=== PATIENT | male | born 1965 | race Two or more races ===

== ENCOUNTER 2018-06-27 07:59 | Inpatient (IN) | payer OTHER ==
[~2018-06-27] VITALS: Ht 177.8 cm; Wt 208.5 kg
[2018-06-27] VITALS (7 sets, daily range): BP systolic 115–151; BP diastolic 58–75
[2018-06-27 09:24] LABS: BASO % 0 % (0-3); EOS # 0.3 x10^3/uL (0.0-0.7); EOS % 4 % (0-3); HEMATOCRIT 31.1 % (39.0-53.0); LYMPH # 2.1 x10^3/uL (1.0-4.8); LYMPH % 21 % (24-48); MEAN CORPUSCULAR HEMOGLOBIN 28 pg (25-35); MEAN CORPUSCULAR HGB CONC 32 g/dL (31-37); MEAN CORPUSCULAR VOLUME 86 fL (79-100); MONO # 0.7 x10^3/uL (0.0-1.1); MONO % 8 % (0-9); NEUT # 6.5 x10^3uL (1.8-7.7); NEUT % 67 % (31-73); PLATELET COUNT 193 x10^3/uL (140-400); RED BLOOD COUNT 3.64 x10^6/uL (4.30-5.70); RED CELL DISTRIBUTION WIDTH 16.5 % (11.5-14.5); WHITE BLOOD COUNT 9.7 x10^3/uL (4.0-11.0)
--- NOTE | 2018-06-27 09:38 | PDOC2 ---
ROSE CABRERA SOFTWARE SECURITY ARCHITECT 06/27/18 0938: CONSULT Date of Admission DATE: 06/27/18 TIME: 09:16 Reason for Consult: Acute on chronic diastolic heart failure Referring Physician: Dr Ardon History of Present Illness This is a pleasant 52-year-old male who came in as a direct admit with chief complaint of lower extremity edema and shortness of breath. He has a past medical history of congestive heart failure with preserved ejection fraction, hypertension, hyperlipidemia, chronic kidney disease, gastroesophageal reflux disease, and morbid obesity. over the last several months he has been having problems with lower extremity edema that is unrelieved by increasing his oral Lasix. He is very concerned about his kidney disease because his creatinine is very labile with diuresing him. We brought him to the hospital today so we could give him IV Lasix and monitor his kidney function closely. He has also been having problems with dyspnea on exertion. He is quite sedentary but when he is trying to move around he has been more short of breath. Review of systems - review of 10 organ systems is negative except for as in HPI. Allergies: PENICILLINS Medications Allopurinol 100 mg twice a day, aspirin 81 mg daily, atorvastatin 10 mg daily, Carafate 1 tablet 4 times a day, cyclobenzaprine 10 mg twice a day, for O some I had 120 mg twice a day, gabapentin 300 mg 4 times a day, isosorbide 60 mg daily Klor-Con 60 mEq twice a day, lisinopril 10 mg daily, loratadine 10 mg daily, metolazone 2.5 mg twice a day, metoprolol tartrate 50 mg twice a day, Singulair 10 mg daily, naproxen 500 mg p.r.n., omeprazole 40 mg daily, sertraline 150 mg daily, trazodone 200 mg daily Family History His mother had heart disease, diabetes, hypertension and cancer. His father had diabetes and heart disease. He has a sibling with heart disease. Social History Occupation: inmate Marital status: Diet: Regular Smoking Status: Never smoker Alcohol intake: None Caffeine intake: Moderate Past Medical/Surgical History Congestive Heart Failure (CHF): Y Acid Reflux (GERD): Y Peptic Ulcer Disease: Y Sleep Apnea: Y Physical Exam Patient is a 52-year-old male. Constitutional: General Appearance: morbidly obese. Level of Distress: NAD. Ambulation: Laying in stretcher.. Psychiatric: Mental Status: normal mood and affect and active and alert. Orientation: to time, place, and person. Head: Head: normocephalic and atraumatic. Eyes: Lids and Conjunctivae: non-injected; No xanthelasma. EOM: EOMI. Lungs: Auscultation: no wheezing, rales/crackles, or rhonchi and breath sounds normal, good air movement, and CTA except as noted. Cardiovascular: Apical Impulse: not displaced. Heart Auscultation: normal S1 and S2; no murmurs, rubs, or gallops; and RRR. Neck vessels: no carotid bruits; Jugular venous pressure not elevated. Abdomen: Bowel Sounds: normal. Inspection and Palpation: soft and no tenderness. Musculoskeletal:: Motor Strength and Tone: normal tone and motor strength. Extremities: no cyanosis and edema; 2+ bilateral pretibial edema. Neurologic: Gait and Station: Laying in stretcher.. Cranial Nerves: grossly intact. Skin: Inspection and palpation: no rash or lesions. Back: Thoracolumbar Appearance: normal curvature. Procedure Documentation ECHOCARDIOGRAM (06/03/2018): This is a technically difficult study due to body habitus. The left ventricle is normal in size. There is mild concentric left ventricular hypertrophy. The left ventricular systolic function appears normal with a visually estimated ejection fraction of 55-60%. The left ventricular diastolic function is normal. There is moderate bi-atrial dilatation. There is mild aortic valve sclerosis. The estimated pulmonary artery pressure is 25 mmHg, which is within normal parameters. No previous study for comparison. ELECTROCARDIOGRAM (06/03/2018): Sinus rhythm, normal tracing. ELECTROCARDIOGRAM (05/03/2018): Sinus rhythm with premature ventricular complex , otherwise unremarkable tracing. Assessment / Plan 1. Acuteon chronic diastolic heart failure - Plan to admit for IV Lasix strip in monitor lab closely. Will order chest x-ray. 2. Chest pain - Exact etiology unclear. Unfortunately, due to his extremely morbid obesity, he is not a candidate for any noninvasive or invasive cardiac testing. He should continue on aspirin, beta-lalit, long-acting nitrates, and statin medication. 3. Essential hypertension - The hypertension appears to be well controlled. I recommend the patient continue the present anti- 4. Pure hypercholesterolemia -Goal LDL < 100 mg/dL. Continue statin therapy 5. Gastroesophageal reflux disease without esophagitis - continue Carafate as well as PPI. 6. 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 Lifestyle modification with exercise, diet and weight loss was recommended to the patient. SEPIDEH WORTHINGTON Jr, MD 06/27/18 0959: CONSULT Reason for Consult: CHF. History of Present Illness He is a pleasant 52-year-old male with a history of chronic heart failure with preserved ejection fraction. He is currently a incarcerated at [facility] of the local prisons. He states that since he has been incarcerated he has gained a significant amount of weight which he believes is all water. I have seen him in the office and we have attempted to adjust his diuretic dose. However, he has not been losing weight. He continues to have significant bilateral lower extremity edema and ongoing dyspnea on exertion. Because of this, we elected to admit him to the hospital for intravenous diuresis. He has ongoing intermittent episodes of chest discomfort. This is in the center of his chest. This occurs with and without exertion. This may be brief for last up to hours. Nothing seems to bring this on. Nothing seems to make this better other than just waiting for this to pass. He has occasional paroxysmal nocturnal dyspnea and orthopnea. He denies any significant palpitations, or syncope. He has occasional lightheaded spells. Review of System review of 10 organ systems is as per the history of present illness, otherwise negative. General: Alert, Oriented X3, Cooperative, No acute distress, Other (He is morbidly obese.) HEENT: Atraumatic, EOMI, Mucous membr. moist/pink Lungs: Clear to auscultation, Normal air movement Heart: Regular rate, Normal S1, Normal S2, No murmurs Abdomen: Normal bowel sounds, Soft, No tenderness Extremities: No clubbing, No cyanosis, Normal pulses, No tenderness/swelling, Other ( 2+ bilateral pretibial edema.) Skin: No rashes, No breakdown, No significant lesion Neuro: Normal speech, Strength at 5/5 X4 ext, Normal tone, Cranial nerves 3-12 NL Psych/Mental Status: Mental status NL, Mood NL Assessment/Plan CHF, acute on chronic, with preserved ejection fraction. He is failing outpatient oral diuretics. We will place him on a Lasix infusion. We will need to watch his renal function closely given his stage 3 chronic kidney disease. He will need potassium replacement. I suspect he may need 2 or 3 nights in the hospital to reach his dry weight. Chest pain. Exact etiology unclear. I suspect this could be multifactorial due to gastroesophageal reflux disease and possibly some musculoskeletal component. Ischemic heart disease is certainly also in the differential diagnosis. However, due to his morbid obesity, he is too large to be able to undergo any noninvasive or for that matter invasive cardiac testing. Essential hypertension. Blood pressure appears well controlled with the present outpatient medications. These should be continued. Hypercholesterolemia. Continue statin medication. Morbid obesity. I suspect this is also contributing to his edema and shortness of breath. Unfortunately, due to his morbid obesity, he is too large to undergo any noninvasive or invasive ischemic evaluation. ROSE CABRERA APRN Jun 27, 2018 09:38 SEPIDEH WORTHINGTON Jr, MD Jun 27, 2018 09:59
[2018-06-27 09:48] LABS: ALBUMIN 3.3 g/dL (3.4-5.0); ALBUMIN/GLOBULIN RATIO 0.8 (1.0-1.7); CALCIUM 9.2 mg/dL (8.5-10.1); CREATININE 2.3 mg/dL (0.7-1.3); GFR 30.1; POTASSIUM 4.3 mmol/L (3.5-5.1); TOTAL BILIRUBIN 0.4 mg/dL (0.2-1.0); TOTAL PROTEIN 7.5 g/dL (6.4-8.2)
[2018-06-27] MEDS ORDERED: FUROSEMIDE 100 MG/10 ML VIAL ONE (10:30)
[2018-06-27] MEDS ORDERED: IV NORMAL SALINE 100 ML BAG ONE (10:30)
[2018-06-27 12:30] LABS: BACTERIA,URINE 0 /HPF (0-FEW); BILIRUBIN,URINE NEG (NEG); CLARITY,URINE CLEAR; COLOR,URINE YELLOW; GLUCOSE,URINE NEG (NEG); NITRITE,URINE NEG (NEG); RBC,URINE 0 /HPF (0-2); SQUAMOUS EPITHELIAL CELL,UR OCC /LPF; UROBILINOGEN,URINE 0.2 mg/dL (0.2 mg/dL); WBC,URINE 0 /HPF (0-4)
[2018-06-27 12:31] LABS: HYALINE CASTS, URINE FEW /HPF
--- NOTE | 2018-06-27 13:34 | RAD ---
EXAM: Chest, single view. HISTORY: Congestive heart failure. COMPARISON: None. FINDINGS: A frontal view of the chest is obtained. There is pulmonary congestion. There is bilateral hilar enlargement due to enlarged central pulmonary arteries or lymphadenopathy. There is an enlarged cardiac silhouette. No pleural effusion or pneumothorax is seen. IMPRESSION: 1. Mild pulmonary congestion. 2. Mild cardiomegaly. 3. Bilateral hilar enlargement likely due to enlarged central pulmonary arteries or lymphadenopathy. Electronically signed by: Kady Holt MD (06/27/2018 1:31 PM) [place] [id number]
[2018-06-27] MEDS ORDERED: SUCR1TAB35 PO (14:06)
[2018-06-27] MEDS ORDERED: ISOS60TA2 PO (14:06)
[2018-06-27] MEDS ORDERED: GABA800T2 PO (14:06)
[2018-06-27] MEDS ORDERED: METO2.5T PO (14:06)
[2018-06-27] MEDS ORDERED: TOLT2TAB4 PO (14:06)
[2018-06-27] MEDS ORDERED: TRAZ-86 PO (14:06)
[2018-06-27] MEDS ORDERED: SERT100T PO (14:06)
[2018-06-27] MEDS ORDERED: ALLO100T PO (14:06)
[2018-06-27] MEDS ORDERED: OMEP40CA5 PO (14:06)
[2018-06-27] MEDS ORDERED: POTA20TA4 PO (14:06)
[2018-06-27] MEDS ORDERED: ATOR10TA60 PO (14:06)
[2018-06-27] MEDS ORDERED: CYCL5TAB PO (14:06)
[2018-06-27] MEDS ORDERED: ASPI-630 PO (14:06)
[2018-06-27] MEDS ORDERED: METO50TA6 PO (14:06)
[2018-06-27] MEDS ORDERED: MONT10TA6 PO (14:06)
[2018-06-27] MEDS ORDERED: LORA10TA3 PO (14:06)
--- NOTE | 2018-06-27 14:09 | HP ---
ADMIT DATE: 06/27/2018 HISTORY OF PRESENT ILLNESS: The patient is a 52-year-old -[place] male patient, an inmate at [facility], who was admitted directly with the complaint of lower extremity edema and shortness of breath. When I asked him, he also complained of chest pain, feeling dizzy; however, he denied any orthopnea or paroxysmal nocturnal dyspnea. He said he is lying flat in bed. He also complained of swelling, more of the left leg than the right and pain in his both knee joints and was admitted to be started on a Lasix drip. PAST MEDICAL HISTORY: Significant for hypertension, hyperlipidemia, diastolic congestive heart failure, chronic kidney disease, morbid obesity, obstructive sleep apnea, osteoarthritis, bronchial asthma. He apparently was intubated once before while in [place]. PAST SURGICAL HISTORY: Unremarkable. He did have a colonoscopy before. FAMILY HISTORY: He said he has 4 brothers and 3 sisters, all older than him. He apparently has a very strong family history of diabetes, heart disease, hypertension. His mother at age of 52 because of cancer and father at the age of 62 because of myocardial infarction. SOCIAL HISTORY: He is , has 6 daughters and 5 sons, has never smoked. Drinks alcohol occasionally. 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 He used to snort heroin, has never used any needles. 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 He does not inject amphetamine, methamphetamine, cocaine or use marijuana. REVIEW OF SYSTEMS: The patient denied any blurring of vision, cataract, glaucoma or macular degeneration. Denied any earache, tinnitus or sensorineural deafness. Denied any nosebleeds, stuffy nose or postnasal drip. Denied any sore throat, sore tongue, toothache, hoarseness of voice or difficulty swallowing. Denied any nausea, vomiting, diarrhea or constipation. Denied any hematemesis, melena or hematochezia. Denied any dysuria, frequency or hematuria. Did complain of chest pain, shortness of breath. Denied any chills, rigors, or fever. Denied any cough, phlegm or hemoptysis. Did complain of dizziness and lightheadedness. PHYSICAL EXAMINATION: GENERAL: When I examined him, he looked well and was clearly in no apparent respiratory distress. There was no pallor, jaundice or cyanosis. No lymphadenopathy, no thyromegaly. No jugular venous distention, but marked bilateral lower limb edema, more so on the left than right. VITAL SIGNS: His heart rate was 72, blood pressure 121/68, temperature was 97.7, respiratory rate was 26 and oxygen saturation was 95% on room air. HEENT: Showed normocephalic, atraumatic. NECK: Supple. HEART: Showed normal first and second sounds. No gallop, rub or murmur. CHEST: Shows central trachea, equally reduced expansion, vesicular breath sounds, I could not really appreciate any crepitation or rhonchi. ABDOMEN: Markedly distended, soft with tenderness in the apron. No guarding or rigidity. No organomegaly. Hernial orifice intact. Bowel sounds normal. NEUROLOGIC: He is awake, alert, responding appropriately. All his cranial nerves are intact. He moves his upper extremities to much good extent than his lower extremities. LABORATORY DATA: Her lab work this morning showed a white cell count of 9700, hemoglobin 10, hematocrit 31, MCV 86, and platelet count of 193,000. His serum sodium was 141, potassium 4.3, chloride 104, bicarbonate 31, anion gap of 6, BUN 48, creatinine 2.3, estimated GFR was 30 mL per minute. His glucose was 103. Calcium was 9.2. Total bilirubin, AST, ALT, alkaline phosphatase were normal. Total protein was 7.5, albumin was 3.3. Urinalysis showed the urine was yellow, clear with a pH of 5.5, specific gravity of 1.010. The urine was negative for protein, glucose, ketones, blood, nitrite and leukocyte esterase. There are no rbc's, no wbc's, and no bacteria. His chest x-ray done, but was not reported yet. IMPRESSION AND PLAN: In summary, this is a 52-year-old inmate at the [facility], who has multiple medical problems. He is here for acute on chronic diastolic congestive heart failure with preserved ejection fraction, hypertension, hyperlipidemia, chronic kidney disease, gastroesophageal reflux disease and morbid obesity with obstructive sleep apnea. He has been on 120 mg Lasix twice a day. The plan is to continue with IV drip. We will do 3 sets of cardiac enzyme. Unfortunately, he is not a candidate for any invasive cardiac testing. Hypertension seems to be well controlled. Hypercholesterolemia, on statin. Gastroesophageal reflux disease, continue Carafate and protein pump inhibitor. We will monitor his lab work closely and decide on further management accordingly. I will order also a Doppler ultrasound of his right lower extremity, given the discrepancy to make sure he does not have any DVT given that he has multiple risk factors for that. KYLE MORRIS MD DR: VIJI/darwin JOB#: [id number] / [id number]
[2018-06-27] MEDS: SERTRALINE 100 MG TABLET. PO SCH (15:27)
[2018-06-27] MEDS: ASPIRIN 81 MG TAB.CHEW PO SCH (15:27)
[2018-06-27] MEDS: ALLOPURINOL 100 MG TABLET. PO SCH (15:27)
[2018-06-27] MEDS: ISOSORBIDE MONONITRATE ER 30 MG TAB.ER.24H PO SCH (15:27)
[2018-06-27] MEDS: metOLazone 2.5 MG TABLET PO SCH (15:40)
[2018-06-27] MEDS: POTASSIUM CHLORIDE 20 MEQ TABLET.ER. PO SCH (15:40)
[2018-06-27] MEDS: SUCRALFATE 1 GM TABLET. PO SCH ×2 (15:40→20:36)
--- NOTE | 2018-06-27 16:10 | RAD ---
Examination: Right Lower Extremity Venous Doppler Ultrasound History: Right leg swelling Comparison: None Procedure: Bautista scale, color flow 2D and spectal waveform analysis images are obtained with and without compression in the area of the common femoral vein, superficial femoral vein - femoral vein junction, main femoral vein (superficial femoral vein) and popliteal vein. Veins of the proximal calf are also imaged. Findings: There is normal duplex flow, color flow and compressibility of all visualized vein segments. No evidence of deep venous thrombus is present. Impression: No evidence of DVT in the visualized right lower extremity venous system. Electronically signed by: Augustine Glover MD (06/27/2018 4:07 PM) [id number]
[2018-06-27] MEDS: GABAPENTIN 400 MG CAPSULE. PO SCH (20:36)
[2018-06-27] MEDS: traZODone 100 MG TABLET. PO SCH (20:36)
[2018-06-27] MEDS: METOPROLOL TART IMMED RELEASE 50 MG TABLET PO SCH (20:37)
[2018-06-27] MEDS: OXYBUTYNIN CHLORIDE 5 MG TABLET PO SCH (20:37)
[2018-06-27] MEDS: CYCLOBENZAPRINE 10 MG TABLET. PO SCH (20:37)
[2018-06-27] MEDS: MONTELUKAST 10 MG TABLET. PO SCH (20:37)
[2018-06-27] MEDS ORDERED: ATORVASTATIN CALCIUM 10 MG TABLET. PO SCH (21:00)
[2018-06-28] VITALS (11 sets, daily range): BP systolic 97–158; BP diastolic 41–74
[2018-06-28 06:58] LABS: ALBUMIN 3.1 g/dL (3.4-5.0); ALBUMIN/GLOBULIN RATIO 0.8 (1.0-1.7); CREATININE 2.2 mg/dL (0.7-1.3); GFR 31.7; TOTAL BILIRUBIN 0.5 mg/dL (0.2-1.0)
[2018-06-28] MEDS: GABAPENTIN 400 MG CAPSULE. PO SCH ×2 (07:51→21:35)
[2018-06-28] MEDS: FUROSEMIDE INJ 100 MG in IV NORMAL SALINE 100ML 90 ML IV PRN (07:51)
[2018-06-28] MEDS: SUCRALFATE 1 GM TABLET. PO SCH ×4 (07:52→21:35)
[2018-06-28] MEDS: SERTRALINE 100 MG TABLET. PO SCH (07:56)
[2018-06-28] MEDS: ISOSORBIDE MONONITRATE ER 30 MG TAB.ER.24H PO SCH (07:56)
[2018-06-28] MEDS: metOLazone 2.5 MG TABLET PO SCH ×2 (07:56→17:08)
[2018-06-28] MEDS: CETIRIZINE HCL 10 MG TABLET PO SCH (07:56)
[2018-06-28] MEDS: METOPROLOL TART IMMED RELEASE 50 MG TABLET PO SCH ×2 (07:57→21:36)
[2018-06-28] MEDS: ASPIRIN 81 MG TAB.CHEW PO SCH (07:57)
[2018-06-28] MEDS: ALLOPURINOL 100 MG TABLET. PO SCH (07:57)
[2018-06-28] MEDS: PANTOPRAZOLE 40 MG TABLET. PO SCH (07:58)
[2018-06-28] MEDS: OXYBUTYNIN CHLORIDE 5 MG TABLET PO SCH ×2 (07:58→21:36)
[2018-06-28] MEDS: POTASSIUM CHLORIDE 20 MEQ TABLET.ER. PO SCH ×2 (07:58→17:09)
[2018-06-28] MEDS: CYCLOBENZAPRINE 10 MG TABLET. PO SCH ×2 (07:59→21:35)
--- NOTE | 2018-06-28 12:35 | PDOC ---
ROSE CABRERA CONCRETE POURER 06/28/18 1235: PROGRESS NOTES Assessment We are seeing the patient for congestive heart failure 1. Acute on chronic diastolic heart failure - Continue IV Lasix drip and monitor lab closely. Improving - down 6100 cc. Weight not accurate due to changing beds. 2. Leg cramps - likely from diuresis vs statin therapy. Will decrease drip rate and run Mag on lab drawn 3. Essential hypertension - The hypertension appears to be well controlled. I recommend the patient continue the present anti- 4. Pure hypercholesterolemia -Goal LDL < 100 mg/dL. Statin on hold 5. Gastroesophageal reflux disease without esophagitis - continue Carafate as well as PPI. 6. Morbid obesity -This will increase the patient's mcc risk of possible future cardiac and non-cardiac events. Lifestyle modification with exercise, diet and weight loss was recommended to the patient. Subjective Severe leg cramps and took a while to get relaxed. Swelling has improved. His breathing is fine without palpitations. Objective Vital Signs Date Time Temp Pulse Resp B/P (MAP) Pulse Ox O2 Delivery O2 Flow Rate FiO2 06/28/18 09:49 71 110/56 (74) 06/28/18 08:30 Room Air 06/28/18 04:30 16 93 06/27/18 18:33 97.7 Intake and Output 06/28/18 07:00 Intake Total 1260 ml Output Total 7425 ml Balance -6165 ml Intake Oral 1260 ml Output Urine Total 7425 ml Abdomen: Normal bowel sounds, Soft, No tenderness Heart: Regular rate, Normal S1, Normal S2 Extremities: Other (+1 edema) General: Alert, Oriented X3, Cooperative HEENT: EOMI, Mucous membr. moist/pink Lungs: Clear to auscultation Skin: No rashes, No breakdown Review of Relevant I have reviewed the following items eva (where applicable) has been applied. Labs Laboratory Tests Test 06/27/18 08:49 06/27/18 11:50 06/27/18 11:58 06/28/18 05:33 White Blood Count 9.7 x10^3/uL (4.0-11.0) Red Blood Count 3.64 x10^6/uL (4.30-5.70) Hemoglobin 10.0 g/dL (13.0-17.5) Hematocrit 31.1 % (39.0-53.0) Mean Corpuscular Volume 86 fL (79-100) Mean Corpuscular Hemoglobin 28 pg (25-35) Mean Corpuscular Hemoglobin Concent 32 g/dL (31-37) Red Cell Distribution Width 16.5 % (11.5-14.5) Platelet Count 193 x10^3/uL (140-400) Neutrophils (%) (Auto) 67 % (31-73) Lymphocytes (%) (Auto) 21 % (24-48) Monocytes (%) (Auto) 8 % (0-9) Eosinophils (%) (Auto) 4 % (0-3) Basophils (%) (Auto) 0 % (0-3) Neutrophils # (Auto) 6.5 x10^3uL (1.8-7.7) Lymphocytes # (Auto) 2.1 x10^3/uL (1.0-4.8) Monocytes # (Auto) 0.7 x10^3/uL (0.0-1.1) Eosinophils # (Auto) 0.3 x10^3/uL (0.0-0.7) Basophils # (Auto) 0.0 x10^3/uL (0.0-0.2) Nasal Screen MRSA (PCR) Negative (Negative) Sodium Level 141 mmol/L (136-145) 141 mmol/L (136-145) Potassium Level 4.3 mmol/L (3.5-5.1) 4.0 mmol/L (3.5-5.1) Chloride Level 104 mmol/L (98-107) 103 mmol/L (98-107) Carbon Dioxide Level 31 mmol/L (21-32) 33 mmol/L (21-32) Anion Gap 6 (6-14) 5 (6-14) Blood Urea Nitrogen 48 mg/dL (8-26) 51 mg/dL (8-26) Creatinine 2.3 mg/dL (0.7-1.3) 2.2 mg/dL (0.7-1.3) Estimated GFR (Cockcroft-Gault) 30.1 31.7 BUN/Creatinine Ratio 21 (6-20) 23 (6-20) Glucose Level 103 mg/dL (70-99) 90 mg/dL (70-99) Calcium Level 9.2 mg/dL (8.5-10.1) 9.0 mg/dL (8.5-10.1) Total Bilirubin 0.4 mg/dL (0.2-1.0) 0.5 mg/dL (0.2-1.0) Aspartate Amino Transf (AST/SGOT) 18 U/L (15-37) 15 U/L (15-37) Alanine Aminotransferase (ALT/SGPT) 22 U/L (16-63) 9 U/L (16-63) Alkaline Phosphatase 116 U/L (46-116) 96 U/L (46-116) FY-Swh-T-Type Natriuretic Peptide 111 pg/mL (0-124) Total Protein 7.5 g/dL (6.4-8.2) 7.0 g/dL (6.4-8.2) Albumin 3.3 g/dL (3.4-5.0) 3.1 g/dL (3.4-5.0) Albumin/Globulin Ratio 0.8 (1.0-1.7) 0.8 (1.0-1.7) Glucose (Fingerstick) 102 mg/dL (70-99) Urine Collection Type U cath Urine Color Yellow Urine Clarity Clear Urine pH 5.5 Urine Specific [place] 1.010 Urine Protein Neg (NEG-TRACE) Urine Glucose (UA) Neg mg/dL (NEG) Urine Ketones (Stick) Neg mg/dL (NEG) Urine Blood Neg (NEG) Urine Nitrite Neg (NEG) Urine Bilirubin Neg (NEG) Urine Urobilinogen Dipstick 0.2 mg/dL (0.2 mg/dL) Urine Leukocyte Esterase Neg (NEG) Urine RBC 0 /HPF (0-2) Urine WBC 0 /HPF (0-4) Urine Squamous Epithelial Cells Occ /LPF Urine Bacteria 0 /HPF (0-FEW) Urine Hyaline Casts Few /HPF Urine Mucus Slight /LPF Medications Current Medications Furosemide 100 mg/ Sodium Chloride 100 ml @ 5 mls/hr CONT PRN IV SEE I/O RECORD Last administered on 06/28/18at 07:51; Start 06/27/18 at 10:15 Potassium Chloride (Klor-Con) 60 meq BIDWMEALS PO Last administered on at 07:58; Start 06/27/18 at 17:00 Sertraline HCl (Zoloft) 150 mg DAILY PO Last administered on 06/28/18 07:56; Start 06/27/18 at 15:30 Allopurinol (Zyloprim) 100 mg DAILY PO Last administered on 06/28/18 07:57; Start 06/27/18 at 15:30 Aspirin (Children'S Aspirin) 81 mg DAILYWBKFT PO Last administered on 07:57; Start 06/27/18 at 15:30 Atorvastatin Calcium (Lipitor) 10 mg QHS PO Last administered on 06/27/18 20: 36; Start 06/27/18 at 21:00; Stop 06/28/18 at 10:49; Status DC Cyclobenzaprine HCl (Flexeril) 5 mg BID PO Last administered on 06/28/18 07:59 ; Start 06/27/18 at 21:00 Gabapentin (Neurontin) 1,200 mg BID PO Last administered on 06/28/18 07:51; Start 06/27/18 at 21:00 Isosorbide Mononitrate (Imdur) 60 mg DAILY PO Last administered on 06/28/18 07 :56; Start 06/27/18 at 15:30 Cetirizine HCl (ZyrTEC) 10 mg DAILY PO Last administered on 06/28/18 07:56; Start 06/28/18 at 09:00 Metolazone (Zaroxolyn) 2.5 mg BID94 PO Last administered on 06/28/18 07:56; Start 06/27/18 at 16:00 Metoprolol Tartrate (Lopressor) 50 mg BID PO Last administered on 06/28/18 07: 57; Start 06/27/18 at 21:00 Montelukast Sodium (Singulair) 10 mg QHS PO Last administered on 06/27/18 20: 37; Start 06/27/18 at 21:00 Pantoprazole Sodium (Protonix) 40 mg DAILYAC PO Last administered on 06/28/18 07:58; Start 06/28/18 at 07:30 Sucralfate (Carafate) 1 gm QID PO Last administered on 06/28/18 07:52; Start 06/27/18 at 17:00 Oxybutynin Chloride (Ditropan) 5 mg BID PO Last administered on 8/28/18at 07:58 ; Start 06/27/18 at 21:00 Trazodone HCl (Desyrel) 200 mg QHS PO Last administered on 06/27/18at 20:36; Start 06/27/18 at 21:00 Furosemide (Lasix) 100 mg STK-MED ONCE .ROUTE ; Start 06/27/18 at 10:30; Stop at 07:58; Status DC Sodium Chloride (Iv Sodium Chloride 0.9% 100ml) 100 ml STK-MED ONCE .ROUTE ; Start 06/27/18 at 10:30; Stop 06/28/18 at 07:58; Status DC Enoxaparin Sodium (Lovenox 60mg Syringe) 60 mg Q12HR SQ ; Start 06/28/18 at 11: 15 Active Scripts Active Reported Trazodone Hcl 100 Mg Tablet 2 Tab PO QHS Tolterodine Tartrate 2 Mg Tablet 2 Mg PO DAILY Zoloft (Sertraline Hcl) 100 Mg Tablet 1.5 Tab PO DAILY Omeprazole 40 Mg Capsule.dr 1 Cap PO DAILY Singulair Tablet (Montelukast Sodium) 10 Mg Tablet 1 Tab PO DAILY Metoprolol Tartrate 50 Mg Tablet 1 Tab PO BID Metolazone 2.5 Mg Tablet 2.5 Mg PO BID Loratadine 10 Mg Tablet 1 Tab PO DAILY Klor-Con M20 (Potassium Chloride) 20 Meq Tab.er.prt 3 Tab PO BID Isosorbide Mononitrate Er (Isosorbide Mononitrate) 60 Mg Tab.er.24h 1 Tab PO DAILY Gabapentin 800 Mg Tablet 1,200 Mg PO BID Cyclobenzaprine Hcl 5 Mg Tablet 1 Tab PO BID Carafate (Sucralfate) 1 Gm Tablet 1 Tab PO QID Atorvastatin Calcium 10 Mg Tablet 1 Tab PO DAILY Aspirin 81 Mg Tab.chew 81 Mg PO DAILY Allopurinol 100 Mg Tablet 1 Tab PO DAILY Vitals/I & O Vital Sign - Last 24 Hours 06/27/18 06/27/18 06/27/18 06/27/18 13:03 14:36 15:53 18:33 Temp 97.8 97.7 Pulse 74 O2 Delivery Room Air 06/27/18 06/27/18 06/27/18 06/27/18 19:30 20:00 20:30 20:37 Pulse 80 82 81 Resp 27 25 B/P (MAP) 133/66 (88) 148/61 (90) 140/61 Pulse Ox 93 92 O2 Delivery Room Air Room Air Room Air 06/27/18 06/27/18 06/27/18 06/28/18 21:30 22:30 23:30 00:30 Pulse 80 82 86 76 Resp 24 23 22 22 B/P (MAP) 151/59 (89) 150/75 (100) 148/74 (98) 130/57 (81) Pulse Ox 91 92 95 96 O2 Delivery Room Air Room Air BiPAP/CPAP BiPAP/CPAP 06/28/18 06/28/18 06/28/18 06/28/18 01:30 02:30 03:30 04:30 Pulse 70 72 66 64 Resp 18 20 20 16 B/P (MAP) 112/53 (72) 112/61 (78) 111/55 (73) 97/41 (59) Pulse Ox 95 92 95 93 O2 Delivery BiPAP/CPAP BiPAP/CPAP BiPAP/CPAP BiPAP/CPAP 06/28/18 06/28/18 06/28/18 06/28/18 07:56 07:57 08:30 09:49 Pulse 69 77 71 B/P (MAP) 136/60 136/60 110/56 (74) O2 Delivery Room Air Intake and Output 06/27/18 06/27/18 06/28/18 15:00 23:00 07:00 Intake Total 480 ml 660 ml 120 ml Output Total 650 ml 3225 ml 3550 ml Balance -170 ml -2565 ml -3430 ml SEPIDEH WORTHINGTON Jr, MD 06/29/18 0625: PROGRESS NOTES Assessment ADDENDUM: The patient was seen by Rose Cabrera APRN and I have reviewed her findings and plan and agree with above. Due to staffing constraints, we did not have an attending available on this day to see the patient. MD DEBORAH Barnett Jr., JANAE M APRN Jun 28, 2018 12:35 SEPIDEH WORTHINGTON Jr, MD Jun 29, 2018 06:25
[2018-06-28] MEDS: ENOXAPARIN ** NOTE DOSE ** SYRINGE SQ SCH ×2 (13:01→21:36)
[2018-06-28] MEDS: MAGNESIUM CHLORIDE ER 64 MG TABLET.ER PO SCH (13:01)
[2018-06-28] MEDS ORDERED: ACETAMINOPHEN 325 MG TABLET PO PRN (16:00)
--- NOTE | 2018-06-28 18:56 | RAD ---
Ultrasound venous Doppler INDICATION:Left Leg markedly more swollen than the right. TECHNIQUE: Grayscale, color Doppler and spectral waveform ultrasound images of the left lower extremities deep veins obtained. COMPARISON: None FINDINGS: The interrogated deep veins are compressible and demonstrate evidence of blood flow with normal respiratory variation and response to augmentation. IMPRESSION: Slightly limited study due to patient's body habitus. No apparent sonographic evidence of acute DVT of the left lower extremity deep veins. Electronically signed by: Cornelio Diaz DO (06/28/2018 6:53 PM) [facility]
--- NOTE | 2018-06-28 18:59 | PN ---
DATE: 06/28/2018 SUBJECTIVE: The patient is resting, slightly propped up in bed; awake, alert; complained of severe cramping pain in his left lower extremity. He continued to complain of being dizzy and lightheaded when he stands up. Denied any chest pain or shortness of breath while in bed. When I examined him, he looked well and was clearly in no apparent respiratory distress. No pallor, jaundice, cyanosis or thyromegaly. No jugular venous distension. No lower limb edema. OBJECTIVE: VITAL SIGNS: His heart rate was 71, blood pressure is 110/56, temperature was 98, respiratory rate was 16, and oxygen saturation was 93% on room air. HEAD, EYES, EARS, NOSE AND THROAT: Showed normocephalic, atraumatic. NECK: Supple. HEART: Showed normal first and second heart sounds with no gallop, rub or murmur. CHEST: Clear to auscultation. No crepitation or rhonchi. ABDOMEN: Distended, soft, nontender. No guarding or rigidity. No organomegaly. Hernial orifice intact. Bowel sounds normal. NEUROLOGIC: He was awake, alert, responding appropriately. Cranial nerves intact. He moves extremities without difficulty, although he is mostly bed bound. His intake over the last 24 hours was 1260, output was 7425. LABORATORY DATA: This morning showed a serum sodium 141, potassium 4, chloride 101, bicarbonate 33, anion gap of 5, BUN 51, creatinine 2.2, estimated GFR was 31 mL per minute. Glucose was 90, calcium was 9. Total bilirubin, AST, ALT, alkaline phosphatase were normal. His total protein was 7, albumin was 3.1. His white cell count was 9700, hemoglobin 10, hematocrit 30, MCV 86, and platelet count of 193,000. ASSESSMENT: This is a 52-year-old gentleman -[place] male patient, an inmate at [facility], who was admitted with: 1. Acute on chronic diastolic congestive heart failure with preserved ejection fraction. 2. Hypertension. 3. Hyperlipidemia. 4. Chronic kidney disease. 5. Gastroesophageal reflux disease. 6. Morbid obesity, obstructive sleep apnea. PLAN: To continue with his Lasix drip. I did discontinue his Lipitor as he has severe cramping pain. I will arrange for him to have venous Doppler ultrasound of his left lower extremity, which is more swollen. We will start him on Lovenox. Continue with all other medication. Follow his lab works closely. I will check also his orthostatics as he complained that he is dizzy and lightheaded. KYEL MORRIS MD DR: VIJI/darwin JOB#: [id number] / [id number]
[2018-06-28] MEDS: traZODone 100 MG TABLET. PO SCH (21:35)
[2018-06-28] MEDS: MONTELUKAST 10 MG TABLET. PO SCH (21:36)
[2018-06-29] VITALS (7 sets, daily range): BP systolic 108–162; BP diastolic 61–83
[2018-06-29 06:28] LABS: CREATININE 2.1 mg/dL (0.7-1.3); GFR 33.5
[2018-06-29] MEDS: FUROSEMIDE INJ 100 MG in IV NORMAL SALINE 100ML 90 ML IV PRN (08:24)
[2018-06-29] MEDS: SUCRALFATE 1 GM TABLET. PO SCH ×4 (08:24→21:08)
[2018-06-29] MEDS: ENOXAPARIN ** NOTE DOSE ** SYRINGE SQ SCH ×2 (08:24→21:10)
[2018-06-29] MEDS: metOLazone 2.5 MG TABLET PO SCH ×2 (08:24→16:40)
[2018-06-29] MEDS: POTASSIUM CHLORIDE 20 MEQ TABLET.ER. PO SCH ×2 (08:25→16:40)
[2018-06-29] MEDS: OXYBUTYNIN CHLORIDE 5 MG TABLET PO SCH ×2 (08:25→21:08)
[2018-06-29] MEDS: ISOSORBIDE MONONITRATE ER 30 MG TAB.ER.24H PO SCH (08:25)
[2018-06-29] MEDS: GABAPENTIN 400 MG CAPSULE. PO SCH ×2 (08:26→21:10)
[2018-06-29] MEDS: ALLOPURINOL 100 MG TABLET. PO SCH (08:26)
[2018-06-29] MEDS: ASPIRIN 81 MG TAB.CHEW PO SCH (08:26)
[2018-06-29] MEDS: MAGNESIUM CHLORIDE ER 64 MG TABLET.ER PO SCH (08:27)
[2018-06-29] MEDS: METOPROLOL TART IMMED RELEASE 50 MG TABLET PO SCH ×2 (08:27→21:09)
[2018-06-29] MEDS: CETIRIZINE HCL 10 MG TABLET PO SCH (08:27)
[2018-06-29] MEDS: PANTOPRAZOLE 40 MG TABLET. PO SCH (08:27)
[2018-06-29] MEDS: SERTRALINE 100 MG TABLET. PO SCH (08:27)
[2018-06-29] MEDS: CYCLOBENZAPRINE 10 MG TABLET. PO SCH ×2 (08:27→21:09)
--- NOTE | 2018-06-29 09:48 | PDOC ---
SUBJECTIVE Subjective: Mr. Cuba is doing well this morning. He has remained hemodynamically stable. The patient reports occasional symptoms of chest pain with atypical features. He has not been able to identify any exacerbating or relieving features. He reports that his breathing is relatively stable. He denies any palpitations or lightheadedness. Exam Constitutional: Denies fever or chills Eyes: Denies change in visual acuity HENT: Denies nasal congestion or sore throat Respiratory: Denies cough or shortness of breath Cardiovascular: Denies chest pain or edema GI: Denies abdominal pain, nausea, vomiting, bloody stools or diarrhea : Denies dysuria Musculoskeletal: Denies back pain or joint pain Integument: Denies rash Neurologic: Denies headache, focal weakness or sensory changes Endocrine: Denies polyuria or polydipsia Lymphatic: Denies swollen glands Psychiatric: Denies depression or anxiety OBJECTIVE Vital Signs Vital Signs Date Time Temp Pulse Resp B/P (MAP) Pulse Ox O2 Delivery O2 Flow Rate FiO2 06/29/18 08:27 83 162/81 06/29/18 07:35 Room Air 06/29/18 07:13 98.8 17 96 Physical Exam Constitutional: Well developed, well nourished, no acute distress, non-toxic appearance. HENT: Normocephalic, atraumatic, bilateral external ears normal, oropharynx moist, no oral exudates, nose normal. Eyes: KENISHA, EOMI, conjunctiva normal, no discharge. Neck: Normal range of motion, no tenderness, supple, no stridor. Cardiovascular: JVP not elevated. No carotid bruit. Nor precordial pulsations or heaves. S1 N,S2N. No murmurs. No rubs or clicks. Thorax and Lungs: NOrmal respiration. Normal chest expansion. Normal to percuss. Equal breath sounds. No crackles. No wheeze. Abdomen: Bowel sounds normal, soft, no tenderness, no masses, no pulsatile masses. Skin: Warm, dry, no erythema, no rash. Back: No tenderness, no CVA tenderness. Extremities: Intact distal pulses, no tenderness, no cyanosis, no clubbing, ROM intact, no edema. Neurologic: Alert and oriented X 3, normal motor function, normal sensory function, no focal deficits noted. Psychologic: Affect normal, judgement normal, mood normal. Lab Laboratory Tests Test 06/29/18 05:39 Sodium Level 140 mmol/L (136-145) Potassium Level 4.0 mmol/L (3.5-5.1) Chloride Level 102 mmol/L (98-107) Carbon Dioxide Level 34 mmol/L (21-32) H Anion Gap 4 (6-14) L Blood Urea Nitrogen 52 mg/dL (8-26) H Creatinine 2.1 mg/dL (0.7-1.3) H Estimated GFR (Cockcroft-Gault) 33.5 Glucose Level 100 mg/dL (70-99) H Calcium Level 9.0 mg/dL (8.5-10.1) Creatine Kinase 389 U/L (39-308) H MEDICATIONS Medications Current Medications Medications (Trade) Dose Ordered Sig/Will Start Time Stop Time Status Last Admin Dose Admin Acetaminophen (Tylenol) 650 mg PRN Q6HRS PRN 06/28/18 16:00 06/28/18 17:09 650 MG Allopurinol (Zyloprim) 100 mg DAILY 06/27/18 15:30 06/29/18 08:26 100 MG Aspirin (Children'S Aspirin) 81 mg DAILYWBKFT 06/27/18 15:30 06/29/18 08:26 81 MG Atorvastatin Calcium (Lipitor) 10 mg QHS 06/27/18 21:00 06/28/18 10:49 DC 06/27/18 20:36 10 MG Cetirizine HCl (ZyrTEC) 10 mg DAILY 06/28/18 09:00 06/29/18 08:27 10 MG Cyclobenzaprine HCl (Flexeril) 5 mg BID 06/27/18 21:00 06/29/18 08:27 5 MG Enoxaparin Sodium (Lovenox 60mg Syringe) 60 mg Q12HR 06/28/18 11:15 06/29/18 08:24 60 MG Furosemide (Lasix) 100 mg STK-MED ONCE 06/27/18 10:30 06/28/18 07:58 DC Furosemide 100 mg/ Sodium Chloride 100 ml @ 5 mls/hr CONT PRN 06/27/18 10:15 06/29/18 08:24 5 MLS/HR Gabapentin (Neurontin) 1,200 mg BID 06/27/18 21:00 06/29/18 08:26 1,200 MG Isosorbide Mononitrate (Imdur) 60 mg DAILY 06/27/18 15:30 06/29/18 08:25 60 MG Magnesium Chloride (Mag Delay) 64 mg DAILY 06/28/18 13:00 06/29/18 08:27 64 MG Metolazone (Zaroxolyn) 2.5 mg BID94 06/27/18 16:00 06/29/18 08:24 2.5 MG Metoprolol Tartrate (Lopressor) 50 mg BID 06/27/18 21:00 06/29/18 08:27 50 MG Montelukast Sodium (Singulair) 10 mg QHS 06/27/18 21:00 06/28/18 21:36 10 MG Oxybutynin Chloride (Ditropan) 5 mg BID 06/27/18 21:00 06/29/18 08:25 5 MG Pantoprazole Sodium (Protonix) 40 mg DAILYAC 06/28/18 07:30 06/29/18 08:27 40 MG Potassium Chloride (Klor-Con) 60 meq BIDWMEALS 06/27/18 17:00 06/29/18 08:25 60 MEQ Sertraline HCl (Zoloft) 150 mg DAILY 06/27/18 15:30 06/29/18 08:27 150 MG Sodium Chloride (Iv Sodium Chloride 0.9% 100ml) 100 ml STK-MED ONCE 06/27/18 10:30 06/28/18 07:58 DC Sucralfate (Carafate) 1 gm QID 06/27/18 17:00 06/29/18 08:24 1 GM Trazodone HCl (Desyrel) 200 mg QHS 06/27/18 21:00 06/28/18 21:35 200 MG PLAN Plan 1. Acute on chronic CHF, diastolic, improving 2. Essential hypertension 3. Mixed hyperlipidemia 4. Atypical chest pain 5. Morbid obesity 6. GERD Mr. Cuba is doing reasonably well this morning. He has remained hemodynamically stable. The patient does reports symptoms of chest pain with atypical features, but in retrospect, this has been an issue for quite some time. Etiology is not completely clear, and noninvasive ischemic diagnostic testing is likely not possible given his underlying morbid obesity. This could be assessed further in the outpatient setting. There is not evidence of ACS at the present time. On examination, volume status is somewhat difficult to evaluate due to underlying morbid obesity. Having said this, the patient has lost a significant amount of fluid and weight with IV Lasix drip. I note that per labs, he likely would tolerate further diuresis. I think it would be reasonable to continue IV Lasix today, and reassess tomorrow. I do note that he is moderately hypertensive , and I have taken the liberty of increasing his metoprolol regimen. I agree with continuing the rest of his cardiac regimen as prescribed. Please continue to follow electrolytes closely, and replace as needed. We will continue to follow along. Please call with any further questions. HETAL CASTELLANOS MD Jun 29, 2018 09:48
[2018-06-29] MEDS: DULoxetine HCL 30 MG CAPSULE.DR PO SCH (13:57)
[2018-06-29] MEDS: DOCUSATE SODIUM 100 MG CAPSULE PO SCH ×2 (13:57→21:08)
[2018-06-29] MEDS: POLYETHYLENE GLYCOL 3350 17 GM PACKET. PO SCH (13:57)
[2018-06-29] MEDS: traZODone 100 MG TABLET. PO SCH (21:08)
[2018-06-29] MEDS: MONTELUKAST 10 MG TABLET. PO SCH (21:09)
--- NOTE | 2018-06-29 22:51 | PN ---
DATE: 06/29/2018 SUBJECTIVE: The patient is resting, slightly propped up, eating his lunch comfortably in no apparent distress. He continued to complain of what seemed to be left lumbar radiculopathy, severe pain in his low back and left leg. He also complained of constipation. Has not had a bowel movement for the last 4 days. OBJECTIVE: GENERAL: When I examined him today, he looked well and was clearly in no apparent respiratory distress, slightly pale, no jaundice, cyanosis, lymphadenopathy or thyromegaly. No jugular venous distension. No limb edema. VITAL SIGNS: Her heart rate was 78, blood pressure was 135/73, temperature was 98.8, respiratory rate was 18 and oxygen saturation was 96% on room air. HEAD, EYES, EARS, NOSE AND THROAT: Showed normocephalic, atraumatic. NECK: Supple. HEART: Showed normal first and second heart sounds with no gallop, rub or murmur. CHEST: Clear to auscultation. No crepitation or rhonchi. ABDOMEN: Distended, soft, nontender. NEUROLOGIC: He was awake, alert, responding appropriately. Cranial nerves intact. He moves extremities without difficulty. His intake was 1500, output was 6000. LABORATORY DATA: DATA: His lab work this morning showed a serum sodium of 140, potassium 4, chloride 102, bicarbonate 34, anion gap of 4, BUN 52, creatinine 2.1, estimated GFR was 33 mL per minute. His glucose was 100, calcium was 9, magnesium was 1.8 and a CK was 389. His thyroid function was 1.661. His left lower extremity venous Doppler ultrasound showed no sonographic evidence of acute DVT of the left lower extremity deep veins. ASSESSMENT: 1. Acute on chronic diastolic congestive heart failure, improving. 2. Hypertension, well controlled. 3. Hyperlipidemia. 4. Acute on chronic kidney injury, improving. 5. Gastroesophageal reflux disease. 6. Morbid obesity, obstructive sleep apnea. 7. Left lumbar radiculopathy. PLAN: To continue with Lasix drip. I added Colace and MiraLax for constipation and also Cymbalta 30 mg once a day for his radiculopathy. We will monitor his labs again to make sure that his potassium is well controlled. KYLE MORRIS MD DR: VIJI/darwin JOB#: [id number] / [id number]
[2018-06-30 01:57] VITALS: BP 114/49
[2018-06-30 06:16] LABS: CALCIUM 8.9 mg/dL (8.5-10.1); CREATININE 1.9 mg/dL (0.7-1.3); GFR 37.6; POTASSIUM 4.2 mmol/L (3.5-5.1)
[2018-06-30 06:27] VITALS: BP 140/59
[2018-06-30] MEDS: POLYETHYLENE GLYCOL 3350 17 GM PACKET. PO SCH (08:11)
[2018-06-30] MEDS: SUCRALFATE 1 GM TABLET. PO SCH ×4 (08:13→20:34)
[2018-06-30] MEDS: DULoxetine HCL 30 MG CAPSULE.DR PO SCH (08:13)
[2018-06-30] MEDS: ISOSORBIDE MONONITRATE ER 30 MG TAB.ER.24H PO SCH (08:14)
[2018-06-30] MEDS: POTASSIUM CHLORIDE 20 MEQ TABLET.ER. PO SCH ×2 (08:14→17:03)
[2018-06-30] MEDS: metOLazone 2.5 MG TABLET PO SCH ×2 (08:15→14:30)
[2018-06-30] MEDS: CYCLOBENZAPRINE 10 MG TABLET. PO SCH ×2 (08:15→20:34)
[2018-06-30] MEDS: DOCUSATE SODIUM 100 MG CAPSULE PO SCH ×2 (08:18→20:41)
[2018-06-30] MEDS: GABAPENTIN 400 MG CAPSULE. PO SCH ×2 (08:18→20:33)
[2018-06-30] MEDS: SERTRALINE 100 MG TABLET. PO SCH (08:18)
[2018-06-30] MEDS: MAGNESIUM CHLORIDE ER 64 MG TABLET.ER PO SCH (08:19)
[2018-06-30] MEDS: ALLOPURINOL 100 MG TABLET. PO SCH (08:19)
[2018-06-30] MEDS: PANTOPRAZOLE 40 MG TABLET. PO SCH (08:19)
[2018-06-30] MEDS: METOPROLOL TART IMMED RELEASE 50 MG TABLET PO SCH ×2 (08:19→20:37)
[2018-06-30] MEDS: ENOXAPARIN ** NOTE DOSE ** SYRINGE SQ SCH ×2 (08:20→20:41)
[2018-06-30] MEDS: OXYBUTYNIN CHLORIDE 5 MG TABLET PO SCH ×2 (08:20→20:33)
[2018-06-30] MEDS: ASPIRIN 81 MG TAB.CHEW PO SCH (08:20)
[2018-06-30] MEDS: CETIRIZINE HCL 10 MG TABLET PO SCH (08:20)
[2018-06-30] MEDS: FUROSEMIDE INJ 100 MG in IV NORMAL SALINE 100ML 90 ML IV PRN (09:18)
--- NOTE | 2018-06-30 13:22 | PDOC ---
ROSE [employer]A [employer] 06/30/18 1322: PROGRESS NOTES Assessment We are seeing the patient for congestive heart failure Acute on chronic diastolic heart failure - Continue IV Lasix drip 24 more hours and monitor lab closely. His weight is down 60 pounds and his creatinine has improved. Increase lasix to 7.5 mg / hr. Essential hypertension - The hypertension appears to be well controlled. Continue current medications Pure hypercholesterolemia -Goal LDL < 100 mg/dL. Statin on hold Gastroesophageal reflux disease without esophagitis - continue Carafate as well as PPI. Morbid obesity -This will increase the patient's halfway risk of possible future cardiac and non-cardiac events. Lifestyle modification with exercise, diet and weight loss was recommended to the patient. Subjective He walked half way to the shower and had to stop for leg weakness and shortness of breath. He is feeling better but still winded with any activity. He denies any palpations or chest pain. Objective Vital Signs Date Time Temp Pulse Resp B/P (MAP) Pulse Ox O2 Delivery O2 Flow Rate FiO2 06/30/18 10:19 100 06/30/18 08:19 140/59 06/30/18 07:30 Room Air 06/30/18 06:27 97.8 41 88 Intake and Output 06/30/18 07:00 Intake Total 1768 ml Output Total 8350 ml Balance -6582 ml Intake Oral 1720 ml IV Total 48 ml Output Urine Total 8350 ml # Voids 1 Abdomen: Normal bowel sounds, Soft, No tenderness Heart: Regular rate, Normal S1, Normal S2, No murmurs Extremities: Other (leg swelling improved. Still holding fluid in his abdomen) General: Alert, Oriented X3, Cooperative HEENT: EOMI, Mucous membr. moist/pink Lungs: Clear to auscultation Psych/Mental Status: Mental status NL, Mood NL Review of Relevant I have reviewed the following items eva (where applicable) has been applied. Labs Laboratory Tests Test 06/29/18 05:39 06/30/18 05:35 Sodium Level 140 mmol/L (136-145) 140 mmol/L (136-145) Potassium Level 4.0 mmol/L (3.5-5.1) 4.2 mmol/L (3.5-5.1) Chloride Level 102 mmol/L (98-107) 99 mmol/L (98-107) Carbon Dioxide Level 34 mmol/L (21-32) 35 mmol/L (21-32) Anion Gap 4 (6-14) 6 (6-14) Blood Urea Nitrogen 52 mg/dL (8-26) 49 mg/dL (8-26) Creatinine 2.1 mg/dL (0.7-1.3) 1.9 mg/dL (0.7-1.3) Estimated GFR (Cockcroft-Gault) 33.5 37.6 Glucose Level 100 mg/dL (70-99) 104 mg/dL (70-99) Calcium Level 9.0 mg/dL (8.5-10.1) 8.9 mg/dL (8.5-10.1) Creatine Kinase 389 U/L (39-308) Medications Current Medications Furosemide 100 mg/ Sodium Chloride 100 ml @ 5 mls/hr CONT PRN IV SEE I/O RECORD Last administered on 06/30/18 09:18; Start 06/27/18 at 10:15 Potassium Chloride (Klor-Con) 60 meq BIDWMEALS PO Last administered on 08:14; Start 06/27/18 at 17:00 Sertraline HCl (Zoloft) 150 mg DAILY PO Last administered on 06/30/18 08:18; Start 06/27/18 at 15:30 Allopurinol (Zyloprim) 100 mg DAILY PO Last administered on 06/30/18 08:19; Start 06/27/18 at 15:30 Aspirin (Children'S Aspirin) 81 mg DAILYWBKFT PO Last administered on 08:20; Start 06/27/18 at 15:30 Atorvastatin Calcium (Lipitor) 10 mg QHS PO Last administered on 06/27/18at 20: 36; Start 06/27/18 at 21:00; Stop 06/28/18 at 10:49; Status DC Cyclobenzaprine HCl (Flexeril) 5 mg BID PO Last administered on 06/30/18 08:15 ; Start 06/27/18 at 21:00 Gabapentin (Neurontin) 1,200 mg BID PO Last administered on 06/30/18 08:18; Start 06/27/18 at 21:00 Isosorbide Mononitrate (Imdur) 60 mg DAILY PO Last administered on 06/30/18 08 :14; Start 06/27/18 at 15:30 Cetirizine HCl (ZyrTEC) 10 mg DAILY PO Last administered on 06/30/18 08:20; Start 06/28/18 at 09:00 Metolazone (Zaroxolyn) 2.5 mg BID94 PO Last administered on 06/30/18 08:15; Start 06/27/18 at 16:00 Metoprolol Tartrate (Lopressor) 50 mg BID PO Last administered on 06/29/18 08: 27; Start 06/27/18 at 21:00; Stop 06/29/18 at 11:30; Status DC Montelukast Sodium (Singulair) 10 mg QHS PO Last administered on 06/29/18 21: 09; Start 06/27/18 at 21:00 Pantoprazole Sodium (Protonix) 40 mg DAILYAC PO Last administered on 06/30/18 08:19; Start 06/28/18 at 07:30 Sucralfate (Carafate) 1 gm QID PO Last administered on 06/30/18 12:26; Start 06/27/18 at 17:00 Oxybutynin Chloride (Ditropan) 5 mg BID PO Last administered on 06/30/18 08:20 ; Start 06/27/18 at 21:00 Trazodone HCl (Desyrel) 200 mg QHS PO Last administered on 06/29/18 21:08; Start 06/27/18 at 21:00 Furosemide (Lasix) 100 mg STK-MED ONCE .ROUTE ; Start 06/27/18 at 10:30; Stop at 07:58; Status DC Sodium Chloride (Iv Sodium Chloride 0.9% 100ml) 100 ml STK-MED ONCE .ROUTE ; Start 06/27/18 at 10:30; Stop 06/28/18 at 07:58; Status DC Enoxaparin Sodium (Lovenox 60mg Syringe) 60 mg Q12HR SQ Last administered on 08:20; Start 06/28/18 at 11:15 Magnesium Chloride (Mag Delay) 64 mg DAILY PO Last administered on 06/30/18 08 :19; Start 06/28/18 at 13:00 Acetaminophen (Tylenol) 650 mg PRN Q6HRS PRN PO PAIN / TEMP Last administered on 06/28/18at 17:09; Start 06/28/18 at 16:00 Metoprolol Tartrate (Lopressor) 100 mg BID PO Last administered on 06/30/18at 08 :19; Start 06/29/18 at 21:00 Docusate Sodium (Colace) 100 mg BID PO Last administered on 06/30/18 08:18; Start 06/29/18 at 13:30 Polyethylene Glycol (miraLAX) 17 gm DAILY PO Last administered on 06/30/18at 08: 11; Start 06/29/18 at 13:30 Duloxetine HCl (Cymbalta) 30 mg DAILY PO Last administered on 06/30/18at 08:13; Start 06/29/18 at 13:30 Active Scripts Active Reported Trazodone Hcl 100 Mg Tablet 2 Tab PO QHS Tolterodine Tartrate 2 Mg Tablet 2 Mg PO DAILY Zoloft (Sertraline Hcl) 100 Mg Tablet 1.5 Tab PO DAILY Omeprazole 40 Mg Capsule.dr 1 Cap PO DAILY Singulair Tablet (Montelukast Sodium) 10 Mg Tablet 1 Tab PO DAILY Metoprolol Tartrate 50 Mg Tablet 1 Tab PO BID Metolazone 2.5 Mg Tablet 2.5 Mg PO BID Loratadine 10 Mg Tablet 1 Tab PO DAILY Klor-Con M20 (Potassium Chloride) 20 Meq Tab.er.prt 3 Tab PO BID Isosorbide Mononitrate Er (Isosorbide Mononitrate) 60 Mg Tab.er.24h 1 Tab PO DAILY Gabapentin 800 Mg Tablet 1,200 Mg PO BID Cyclobenzaprine Hcl 5 Mg Tablet 1 Tab PO BID Carafate (Sucralfate) 1 Gm Tablet 1 Tab PO QID Atorvastatin Calcium 10 Mg Tablet 1 Tab PO DAILY Aspirin 81 Mg Tab.chew 81 Mg PO DAILY Allopurinol 100 Mg Tablet 1 Tab PO DAILY Vitals/I & O Vital Sign - Last 24 Hours 06/29/18 06/29/18 06/29/18 06/29/18 14:14 18:28 20:02 21:09 Temp 98.7 Pulse 85 89 89 Resp 20 20 B/P (MAP) 108/66 (80) 129/77 (94) 129/77 Pulse Ox 98 95 O2 Delivery Room Air Room Air Room Air 06/29/18 06/30/18 06/30/18 06/30/18 21:53 01:57 06:27 07:30 Temp 98.3 97.9 97.8 Pulse 76 72 72 Resp 24 15 41 B/P (MAP) 149/83 (105) 114/49 (70) 140/59 (86) Pulse Ox 88 90 88 O2 Delivery Room Air BiPAP/CPAP Room Air Room Air 06/30/18 06/30/18 06/30/18 08:14 08:19 10:19 Pulse 72 72 100 B/P (MAP) 140/59 140/59 Intake and Output 06/29/18 06/29/18 06/30/18 15:00 23:00 07:00 Intake Total 840 ml 480 ml 448 ml Output Total 2800 ml 2450 ml 3100 ml Balance -1960 ml -1970 ml -2652 ml SEPIDEH WORTHINGTON Jr, MD 07/01/18 0624: PROGRESS NOTES Assessment ADDENDUM: The patient was seen by Rose Cabrera APRN and I have reviewed her findings and plan and agree with above. Due to staffing constraints, we did not have an attending available on this day to see the patient. MD DEBORAH Barnett Jr., JANAE M APRN Jun 30, 2018 13:22 SEPIDEH WORTHINGTON Jr, MD Jul 01, 2018 06:24
[2018-06-30 14:30] VITALS: BP 171/87
[2018-06-30 18:01] VITALS: BP 138/70
[2018-06-30] MEDS: traZODone 100 MG TABLET. PO SCH (20:34)
[2018-06-30] MEDS: MONTELUKAST 10 MG TABLET. PO SCH (20:40)
[2018-06-30 22:00] VITALS: BP 125/61
[2018-07-01] MEDS ORDERED: FUROSEMIDE 100 MG/10 ML VIAL ONE (01:10)
[2018-07-01 01:53] VITALS: BP 143/59
--- NOTE | 2018-07-01 02:06 | PN ---
DATE: 06/30/2018 SUBJECTIVE: The patient is resting almost flat in bed, in no apparent distress. He has no further episode of chest pain or shortness of breath. He is lying flat. He has had a bowel movement and had a shower today. He was seen by the Cardiology team and apparently they decided to increase his Lasix to 7.5 mg per hour. PHYSICAL EXAMINATION: GENERAL: When I saw him today, he looked well and was clearly in no apparent respiratory distress. No pallor, jaundice, cyanosis, or thyromegaly. No jugular venous distension. No lower limb edema. VITAL SIGNS: His heart rate was 72, blood pressure 140/60, temperature was 97.8, respiratory rate was 20, and oxygen saturation was 90% on room air. HEAD, EYES, EARS, NOSE AND THROAT: Showed normocephalic, atraumatic. NECK: Supple. HEART: Showed normal first and second heart sounds with no gallop, rub or murmur. CHEST: Clear to auscultation. No crepitation or rhonchi. ABDOMEN: Distended, soft, nontender. No guarding or rigidity. No organomegaly. Hernial orifice intact. Bowel sounds normal. NEUROLOGIC: He was awake, alert, responding appropriately. Cranial nerves intact. EXTREMITIES: He moves all extremities without difficulty. His intake over the last 24 hours was 1768, output was 8350. LABORATORY DATA: As of this morning, his serum sodium was 140, potassium 4.2, chloride 99, bicarbonate 35, anion gap of 6, BUN 49, creatinine 1.9, estimated GFR was 37 mL per minute, his glucose 104, calcium was 8.9. His white cell count was 9700, hemoglobin 10, hematocrit 30, MCV 86, and platelet count of 193,000. ASSESSMENT: 1. Acute on chronic diastolic congestive heart failure, improving. 2. Hypertension, well controlled. 3. Hyperlipidemia. 4. Acute on chronic kidney injury, improving. His creatinine is down to 1.9. 5. Gastroesophageal reflux disease. 6. Morbid obesity, obstructive sleep apnea. 7. Left lumbar radiculopathy. PLAN: Continue with Colace. Continue with all his other medications. Continue with DVT prophylaxis and continue with metolazone and Lasix drip. KYLE MORRIS MD DR: VIJI/darwin JOB#: [id number] / [id number]
[2018-07-01 05:49] VITALS: BP 149/75
[2018-07-01 06:56] LABS: CALCIUM 9.2 mg/dL (8.5-10.1); CREATININE 2.1 mg/dL (0.7-1.3); GFR 33.5
[2018-07-01] MEDS: ASPIRIN 81 MG TAB.CHEW PO SCH (08:12)
[2018-07-01] MEDS: POLYETHYLENE GLYCOL 3350 17 GM PACKET. PO SCH (08:12)
[2018-07-01] MEDS: PANTOPRAZOLE 40 MG TABLET. PO SCH (08:12)
[2018-07-01] MEDS: ENOXAPARIN ** NOTE DOSE ** SYRINGE SQ SCH (08:12)
[2018-07-01] MEDS: ALLOPURINOL 100 MG TABLET. PO SCH (08:12)
[2018-07-01] MEDS: ISOSORBIDE MONONITRATE ER 30 MG TAB.ER.24H PO SCH (08:13)
[2018-07-01] MEDS: CETIRIZINE HCL 10 MG TABLET PO SCH (08:13)
[2018-07-01] MEDS: CYCLOBENZAPRINE 10 MG TABLET. PO SCH (08:13)
[2018-07-01] MEDS: SERTRALINE 100 MG TABLET. PO SCH (08:14)
[2018-07-01] MEDS: metOLazone 2.5 MG TABLET PO SCH (08:14)
[2018-07-01] MEDS: POTASSIUM CHLORIDE 20 MEQ TABLET.ER. PO SCH (08:14)
[2018-07-01] MEDS: OXYBUTYNIN CHLORIDE 5 MG TABLET PO SCH (08:14)
[2018-07-01] MEDS: SUCRALFATE 1 GM TABLET. PO SCH ×2 (08:14→12:08)
[2018-07-01] MEDS: DOCUSATE SODIUM 100 MG CAPSULE PO SCH ×2 (08:14→08:24)
[2018-07-01 08:15] VITALS: BP 149/75
[2018-07-01] MEDS: DULoxetine HCL 30 MG CAPSULE.DR PO SCH (08:15)
[2018-07-01] MEDS: METOPROLOL TART IMMED RELEASE 50 MG TABLET PO SCH (08:15)
[2018-07-01] MEDS: GABAPENTIN 400 MG CAPSULE. PO SCH (08:15)
[2018-07-01] MEDS: MAGNESIUM CHLORIDE ER 64 MG TABLET.ER PO SCH (08:15)
--- NOTE | 2018-07-01 08:34 | PDOC ---
ROSE CABRERA [employer] 07/01/18 0834: PROGRESS NOTES Assessment We are seeing the patient for congestive heart failure Chronic diastolic heart failure - His weight is down 62 pounds and has leveled out. His creatinine back to 2.1. Stop Lasix gtt and change to once a day metolazone and will switch lasix to bumex. Essential hypertension - The hypertension appears to be well controlled. Continue current medications Pure hypercholesterolemia -Goal LDL < 100 mg/dL. Resume statin therapy, I believe the leg cramping was from the aggressive diuresis. Gastroesophageal reflux disease without esophagitis - continue Carafate as well as PPI. Morbid obesity -This will increase the patient's group home risk of possible future cardiac and non-cardiac events. Lifestyle modification with exercise, diet and weight loss was recommended to the patient. Subjective He is feeling better and laying flat in bed. His weight is down 62 pounds back to his baseline. Plan for discharge today Objective Vital Signs Date Time Temp Pulse Resp B/P (MAP) Pulse Ox O2 Delivery O2 Flow Rate FiO2 07/01/18 08:15 73 149/75 07/01/18 05:49 98.2 20 95 Room Air Intake and Output 07/01/18 07:00 Intake Total 1600 ml Output Total 6675 ml Balance -5075 ml Intake Oral 1600 ml Output Urine Total 6675 ml Abdomen: Normal bowel sounds, Soft, No tenderness Heart: Regular rate, Normal S1, Normal S2 Extremities: No edema, Normal pulses General: Alert, Oriented X3, Cooperative HEENT: EOMI, Mucous membr. moist/pink Lungs: Clear to auscultation Psych/Mental Status: Mental status NL, Mood NL Review of Relevant I have reviewed the following items eva (where applicable) has been applied. Labs Laboratory Tests Test 06/30/18 05:35 07/01/18 05:34 Sodium Level 140 mmol/L (136-145) 140 mmol/L (136-145) Potassium Level 4.2 mmol/L (3.5-5.1) 4.0 mmol/L (3.5-5.1) Chloride Level 99 mmol/L (98-107) 98 mmol/L (98-107) Carbon Dioxide Level 35 mmol/L (21-32) 36 mmol/L (21-32) Anion Gap 6 (6-14) 6 (6-14) Blood Urea Nitrogen 49 mg/dL (8-26) 50 mg/dL (8-26) Creatinine 1.9 mg/dL (0.7-1.3) 2.1 mg/dL (0.7-1.3) Estimated GFR (Cockcroft-Gault) 37.6 33.5 Glucose Level 104 mg/dL (70-99) 110 mg/dL (70-99) Calcium Level 8.9 mg/dL (8.5-10.1) 9.2 mg/dL (8.5-10.1) Medications Current Medications Furosemide 100 mg/ Sodium Chloride 100 ml @ 5 mls/hr CONT PRN IV SEE I/O RECORD Last administered on 06/30/18 09:18; Start 06/27/18 at 10:15 Potassium Chloride (Klor-Con) 60 meq BIDWMEALS PO Last administered on 08:14; Start 06/27/18 at 17:00 Sertraline HCl (Zoloft) 150 mg DAILY PO Last administered on 07/01/18 08:14; Start 06/27/18 at 15:30 Allopurinol (Zyloprim) 100 mg DAILY PO Last administered on 07/01/18 08:12; Start 06/27/18 at 15:30 Aspirin (Children'S Aspirin) 81 mg [id number] PO Last administered on 08:12; Start 06/27/18 at 15:30 Atorvastatin Calcium (Lipitor) 10 mg QHS PO Last administered on 06/27/18at 20: 36; Start 06/27/18 at 21:00; Stop 06/28/18 at 10:49; Status DC Cyclobenzaprine HCl (Flexeril) 5 mg BID PO Last administered on 07/01/18 08:13 ; Start 06/27/18 at 21:00 Gabapentin (Neurontin) 1,200 mg BID PO Last administered on 07/01/18 08:15; Start 06/27/18 at 21:00 Isosorbide Mononitrate (Imdur) 60 mg DAILY PO Last administered on 07/01/18 08 :13; Start 06/27/18 at 15:30 Cetirizine HCl (ZyrTEC) 10 mg DAILY PO Last administered on 8/31/18at 08:13; Start 06/28/18 at 09:00 Metolazone (Zaroxolyn) 2.5 mg BID94 PO Last administered on 07/01/18 08:14; Start 06/27/18 at 16:00 Metoprolol Tartrate (Lopressor) 50 mg BID PO Last administered on 06/29/18 08: 27; Start 06/27/18 at 21:00; Stop 06/29/18 at 11:30; Status DC Montelukast Sodium (Singulair) 10 mg QHS PO Last administered on 06/30/18 20: 40; Start 06/27/18 at 21:00 Pantoprazole Sodium (Protonix) 40 mg DAILYAC PO Last administered on 07/01/18 08:12; Start 06/28/18 at 07:30 Sucralfate (Carafate) 1 gm QID PO Last administered on 07/01/18 08:14; Start 06/27/18 at 17:00 Oxybutynin Chloride (Ditropan) 5 mg BID PO Last administered on 07/01/18 08:14 ; Start 06/27/18 at 21:00 Trazodone HCl (Desyrel) 200 mg QHS PO Last administered on 06/30/18 20:34; Start 06/27/18 at 21:00 Furosemide (Lasix) 100 mg STK-MED ONCE .ROUTE ; Start 06/27/18 at 10:30; Stop at 07:58; Status DC Sodium Chloride (Iv Sodium Chloride 0.9% 100ml) 100 ml STK-MED ONCE .ROUTE ; Start 06/27/18 at 10:30; Stop 06/28/18 at 07:58; Status DC Enoxaparin Sodium (Lovenox 60mg Syringe) 60 mg Q12HR SQ Last administered on 08:12; Start 06/28/18 at 11:15 Magnesium Chloride (Mag Delay) 64 mg DAILY PO Last administered on 07/01/18 08 :15; Start 06/28/18 at 13:00 Acetaminophen (Tylenol) 650 mg PRN Q6HRS PRN PO PAIN / TEMP Last administered on 06/28/18at 17:09; Start 06/28/18 at 16:00 Metoprolol Tartrate (Lopressor) 100 mg BID PO Last administered on 07/01/18at 08 :15; Start 06/29/18 at 21:00 Docusate Sodium (Colace) 100 mg BID PO Last administered on 07/01/18at 08:14; Start 06/29/18 at 13:30 Polyethylene Glycol (miraLAX) 17 gm DAILY PO Last administered on 07/01/18at 08: 12; Start 06/29/18 at 13:30 Duloxetine HCl (Cymbalta) 30 mg DAILY PO Last administered on 07/01/18at 08:15; Start 06/29/18 at 13:30 Furosemide (Lasix) 100 mg STK-MED ONCE .ROUTE Last administered on 07/01/18at 01 :10; Start 07/01/18 at 01:10; Stop 07/01/18 at 01:11; Status DC Active Scripts Active Reported Trazodone Hcl 100 Mg Tablet 2 Tab PO QHS Tolterodine Tartrate 2 Mg Tablet 2 Mg PO DAILY Zoloft (Sertraline Hcl) 100 Mg Tablet 1.5 Tab PO DAILY Omeprazole 40 Mg Capsule.dr 1 Cap PO DAILY Singulair Tablet (Montelukast Sodium) 10 Mg Tablet 1 Tab PO DAILY Metoprolol Tartrate 50 Mg Tablet 1 Tab PO BID Metolazone 2.5 Mg Tablet 2.5 Mg PO BID Loratadine 10 Mg Tablet 1 Tab PO DAILY Klor-Con M20 (Potassium Chloride) 20 Meq Tab.er.prt 3 Tab PO BID Isosorbide Mononitrate Er (Isosorbide Mononitrate) 60 Mg Tab.er.24h 1 Tab PO DAILY Gabapentin 800 Mg Tablet 1,200 Mg PO BID Cyclobenzaprine Hcl 5 Mg Tablet 1 Tab PO BID Carafate (Sucralfate) 1 Gm Tablet 1 Tab PO QID Atorvastatin Calcium 10 Mg Tablet 1 Tab PO DAILY Aspirin 81 Mg Tab.chew 81 Mg PO DAILY Allopurinol 100 Mg Tablet 1 Tab PO DAILY Vitals/I & O Vital Sign - Last 24 Hours 06/30/18 06/30/18 06/30/18 06/30/18 10:19 14:30 18:01 20:04 Pulse 100 84 82 B/P (MAP) 171/87 (115) 138/70 (92) O2 Delivery Room Air 06/30/18 06/30/18 07/01/18 07/01/18 20:37 22:00 01:53 05:49 Temp 98.4 98.2 Pulse 79 71 74 73 Resp 20 18 20 B/P (MAP) 141/76 125/61 (82) 143/59 (87) 149/75 (99) Pulse Ox 92 94 95 O2 Delivery Room Air Room Air Room Air 07/01/18 07/01/18 08:13 08:15 Pulse 73 73 B/P (MAP) 149/75 149/75 Intake and Output 06/30/18 06/30/18 07/01/18 15:00 23:00 07:00 Intake Total 450 ml 575 ml 575 ml Output Total 1200 ml 2600 ml 2875 ml Balance -750 ml -2025 ml -2300 ml SEPIDEH WORTHINGTON Jr, MD 07/01/18 0902: PROGRESS NOTES Assessment CHF, acute on chronic, with preserved ejection fraction. He has probably reached his baseline dry weight at this point in time. I will change his IV Lasix over to oral bumetanide. I will change the metolazone to 5 milligrams once a day. He is ready for discharge from a cardiac standpoint. He should have a follow-up basic metabolic panel at the present early next week with results sent to my office. Essential hypertension. Blood pressure appears reasonably controlled with the present medications. These should be continued. Hypercholesterolemia. His statin was stopped due to leg cramps. The leg cramps will likely related to diuresis. I will resume the atorvastatin. Morbid obesity. The patient is seriously needs to lose weight. Acute kidney injury on stage 3 chronic kidney disease. His renal function improved but is now climbing. We will stop the Lasix infusion and resume oral diuretic as outlined above. As above, we will obtain a follow-up basic metabolic panel early next week. Subjective We are seeing him for CHF. S: He was up ambulating to the shower yesterday and working with physical therapy. He feels much better. His breathing is improved. His lower extremity is improved. He denies chest pain, palpitations, or syncope. Abdomen: Normal bowel sounds, Soft, No tenderness Heart: Regular rate, Normal S1, Normal S2, No murmurs Extremities: No clubbing, No cyanosis, Normal pulses, Other (Trace bilateral pretibial edema.) General: Alert, Oriented X3, Cooperative, No acute distress, Other ( Morbidly obese.) HEENT: Atraumatic, EOMI, Mucous membr. moist/pink Lungs: Clear to auscultation, Normal air movement Neck: No JVD, +2 carotid pulse wo bruit Neuro: Normal speech, Strength at 5/5 X4 ext, Normal tone, Cranial nerves 3-12 NL Psych/Mental Status: Mental status NL, Mood NL Skin: No rashes, No breakdown, No significant lesion ROSE CABRERA APRN Jul 01, 2018 08:34 SEPIDEH WORTHINGTON Jr, MD Jul 01, 2018 09:02
[2018-07-01] MEDS ORDERED: metOLazone 5 MG TABLET PO SCH (09:00)
[2018-07-01] MEDS ORDERED: BUMETANIDE 1 MG TABLET PO SCH (09:00)
--- NOTE | 2018-07-01 19:39 | DS ---
DATE OF DISCHARGE: 07/01/2018 HOSPITAL COURSE: The patient is a 52-year-old -[place] male patient, an inmate at [facility], who was admitted with [id number] diastolic congestive heart failure, marked weight gain and shortness of breath with exertion. He was started on a Lasix drip, initially 5 mg and then increased to 7.5 mg per hour and did very well. He lost about 62 pounds. His diuretics were switched him to be on Bumex 2 mg twice a day and his Zaroxolyn was increased to 5 mg daily and a decision was made to discharge him back to [facility] to be followed as an outpatient. PHYSICAL EXAMINATION: GENERAL: At this time, this morning, he looked well and was clearly in no apparent respiratory distress. He was lying flat in bed. VITAL SIGNS: His heart rate was 73, blood pressure 149/75, temperature was 98.2, respiratory rate 20, and oxygen saturation was 95% on room air. HEAD, EYES, EARS, NOSE AND THROAT: Normocephalic, atraumatic. NECK: Supple. HEART: Showed normal first and second heart sounds with no gallop, rub or murmur. CHEST: Clear to auscultation. No crepitation or rhonchi. ABDOMEN: Distended, soft, nontender. No guarding or rigidity. No organomegaly. Hernial orifice intact. Bowel sounds normal. NEUROLOGIC: He was awake, alert, responding appropriately. All cranial nerves intact. He moves extremities without difficulty, ambulates with a walker for short distances. His intake over the last 24 hours was 1768, output was 8350. LABORATORY DATA: As of this morning, his serum sodium was 140, potassium 4, chloride 98, bicarbonate 36, anion gap of 6, BUN 50, creatinine was 2.1, estimated GFR was 33 mL per minute. His glucose was 110, calcium was 9.2. His white cell count was 9700, hemoglobin 10, hematocrit 31, MCV 86, and platelet count of 193. DISCHARGE MEDICATIONS: He was discharged back to [facility] to continue on atorvastatin calcium 10 mg once a day at bedtime, metolazone 5 mg daily, bumetanide 2 mg twice a day, metoprolol tartrate 100 mg twice a day, duloxetine 30 mg daily, polyethylene glycol 17 grams daily, docusate 100 mg twice a day, acetaminophen 650 mg every 4 hours, magnesium chloride 64 mg once a day, cetirizine 10 mg once a day, Protonix 40 mg once a day, trazodone 200 mg at bedtime, oxybutynin 5 mg twice a day, montelukast for Singulair 10 mg at bedtime, gabapentin 1200 mg twice a day, cyclobenzaprine 5 mg twice a day, sucralfate 1 gram 4 times a day, potassium chloride 60 mEq twice a day, isosorbide mononitrate 60 mg daily, aspirin 81 mg once a day, allopurinol 100 mg daily and sertraline 150 mg once a day. FINAL DISCHARGE DIAGNOSES: 1. Acute on chronic diastolic congestive heart failure, improving. 2. Hypertension, well controlled. 3. Hyperlipidemia. 4. Acute on chronic kidney injury with a serum creatinine stable at 2.1. 5. Gastroesophageal reflux disease. 6. Morbid obesity, obstructive sleep apnea. 7. Left lumbar radiculopathy. KYLE MORRIS MD DR: VIJI/darwin JOB#: [id number] / [id number]
[2018-07-01] MEDS ORDERED: ATORVASTATIN CALCIUM 10 MG TABLET. PO SCH (21:00)
== END 2018-07-01 14:31 | DRG 682 ==
LOC: OPINF 07:59 → EEVIPCON 08:45 → ICU 08:45
PROVIDERS: ADMIT Internal Medicine; ATTEND Internal Medicine
PROC: 5A09357 Assistance with Respiratory Ventilation, Less than 24 Consecutive Hours, Continuous Positive Airway Pressure (ICD-10-PCS; principal; 2018-06-27)
PROC: 5A09357 Assistance with Respiratory Ventilation, Less than 24 Consecutive Hours, Continuous Positive Airway Pressure (ICD-10-PCS; 2018-06-29)
PROC: 5A09357 Assistance with Respiratory Ventilation, Less than 24 Consecutive Hours, Continuous Positive Airway Pressure (ICD-10-PCS; 2018-06-30)
DX: N17.9 Acute kidney failure, unspecified (principal); I50.33 Acute on chronic diastolic (congestive) heart failure; I13.0 Hypertensive heart and chronic kidney disease with heart failure and stage 1 through stage 4 chronic kidney disease, or unspecified chronic kidney disease; F11.20 Opioid dependence, uncomplicated; Z68.44 Body mass index [BMI] 60.0-69.9, adult; E66.01 Morbid (severe) obesity due to excess calories; E78.00 Pure hypercholesterolemia, unspecified; E78.5 Hyperlipidemia, unspecified; G47.33 Obstructive sleep apnea (adult) (pediatric); J45.909 Unspecified asthma, uncomplicated; K21.9 Gastro-esophageal reflux disease without esophagitis; K59.00 Constipation, unspecified; M54.16 Radiculopathy, lumbar region; N18.3 Chronic kidney disease, stage 3 (moderate); M19.90 Unspecified osteoarthritis, unspecified site; Z82.49 Family history of ischemic heart disease and other diseases of the circulatory system; Z83.3 Family history of diabetes mellitus; Z87.11 Personal history of peptic ulcer disease
CPT/HCPCS: 36415; 71045; 80048; 80053; 81001; 82550; 82947; 83735; 83880; 84443; 85025; 87641; 93971; J1650; 97116

== ENCOUNTER → 2018-08-29 | Outpatient (CLI) | payer OTHER ==
[~2018-08-29] MED LIST: ALLO100T PO; ASPI-630 PO; ATOR10TA60 PO; CYCL5TAB PO; GABA800T2 PO; ISOS60TA2 PO; LORA10TA3 PO; METO2.5T PO; METO50TA6 PO; MONT10TA6 PO; OMEP40CA5 PO; POTA20TA4 PO; SERT100T PO; SUCR1TAB35 PO; TOLT2TAB4 PO; TRAZ-86 PO
[2018-08-29 08:57] LABS: BASO % 1 % (0-3); EOS # 0.3 x10^3/uL (0.0-0.7); EOS % 4 % (0-3); HEMATOCRIT 34.2 % (39.0-53.0); LYMPH # 2.3 x10^3/uL (1.0-4.8); LYMPH % 26 % (24-48); MEAN CORPUSCULAR HEMOGLOBIN 28 pg (25-35); MEAN CORPUSCULAR HGB CONC 32 g/dL (31-37); MEAN CORPUSCULAR VOLUME 85 fL (79-100); MONO # 0.6 x10^3/uL (0.0-1.1); MONO % 7 % (0-9); NEUT # 5.6 x10^3uL (1.8-7.7); NEUT % 63 % (31-73); PLATELET COUNT 218 x10^3/uL (140-400); RED BLOOD COUNT 4.01 x10^6/uL (4.30-5.70); RED CELL DISTRIBUTION WIDTH 16.8 % (11.5-14.5); WHITE BLOOD COUNT 8.9 x10^3/uL (4.0-11.0)
[2018-08-29 09:12] LABS: ALBUMIN 3.2 g/dL (3.4-5.0); ALBUMIN/GLOBULIN RATIO 0.9 (1.0-1.7); CALCIUM 8.5 mg/dL (8.5-10.1); CREATININE 1.4 mg/dL (0.7-1.3); GFR 53.4; POTASSIUM 3.5 mmol/L (3.5-5.1); TOTAL BILIRUBIN 0.3 mg/dL (0.2-1.0); TOTAL PROTEIN 6.9 g/dL (6.4-8.2)
== END | disposition home or self-care (01) ==
LOC: SPEC 08:33 → EEVIPCON 08:33
PROVIDERS: ATTEND Preventive Medicine Occupational Medicine
DX: R60.9 Edema, unspecified (principal)
CPT/HCPCS: 36415; 80053; 83880; 85025